=== PATIENT | female | born 1960 | race Caucasian/White ===

== ENCOUNTER → 2017-01-20 | Outpatient (CLI) | payer OTHER ==
[~2017-01-20] MED LIST: ALENDRONATE SOD70 MG PO; ASPIRIN EC81 MG PO; COLACE 100MG C100 MG PO; LEVOCETIRIZINE D5 MG PO; LIPITOR TAB 2020 MG PO; LORTAB 7.5-3251 EACH PO; METHOCARBAMOL750 MG PO; METOPROLOL TART25 MG PO; MONTELUKAST SOD10 MG PO; NEURONTIN 300300 MG PO; PLAVIX 75 MG TA75 MG PO; VENTOLIN HFA8 GM INH; VITAMIN D400 UNIT PO
== END ==
LOC: MAMO 07:55
DX: Z12.31 Encounter for screening mammogram for malignant neoplasm of breast (principal); Z78.0 Asymptomatic menopausal state
CPT/HCPCS: G0202

== ENCOUNTER → 2020-09-25 | Outpatient (CLI) | payer MEDICARE ==
[~2020-09-25] MED LIST changes: +ADVAIR 100-501 EACH INH; +CILOSTAZOL50 MG PO; +CRESTOR 10 MG T10 MG PO; +FLEXERIL 10 MG10 MG PO; +FLONASE 0.05% N16 GM; +MOBIC7.5 MG PO; +MUCINEX600 MG PO; +NORCO 7.5-3251 EACH PO; +PLAVIX75 MG PO; +PROTONIX40 MG PO; +VITAMIN D250000 UNIT PO; +[UNRECOGNIZED DRUG - OTHER]; +[UNRECOGNIZED DRUG - OTHER] PO
[2020-09-25 10:48] LABS: HEMOGLOBIN 12.8 gm/dl (12.3-15.3); RED BLOOD COUNT 4.54 M/UL (4.00-5.10); WHITE BLOOD COUNT 9.2 K/UL (4.5-11.0)
[2020-09-25 11:12] LABS: BUN/CREATININE RATIO 13 (0-10)
== END ==
LOC: MAMO 06-22 13:30
PROVIDERS: Nurse Practitioner Family
DX: Z12.31 Encounter for screening mammogram for malignant neoplasm of breast (principal); R93.7 Abnormal findings on diagnostic imaging of other parts of musculoskeletal system; M54.5 Low back pain; J30.9 Allergic rhinitis, unspecified; K21.9 Gastro-esophageal reflux disease without esophagitis; E78.5 Hyperlipidemia, unspecified; I10 Essential (primary) hypertension; K59.04 Chronic idiopathic constipation; E55.9 Vitamin D deficiency, unspecified; R20.2 Paresthesia of skin
CPT/HCPCS: 36415; 77063; 77067; 80053; 80061; 82607; 84439; 84443; 85025

== ENCOUNTER → 2020-10-23 | Outpatient (CLI) | payer MEDICARE | LOC: KOH-I 11:19 | DX: R31.9 Hematuria, unspecified (principal); M54.9 Dorsalgia, unspecified | CPT/HCPCS: 72100; 74018 ==

== ENCOUNTER → 2021-02-12 | Outpatient (CLI) | payer MEDICARE | LOC: EXRD 09:39 | DX: M54.16 Radiculopathy, lumbar region (principal); M47.816 Spondylosis without myelopathy or radiculopathy, lumbar region | CPT/HCPCS: 72100 ==

== ENCOUNTER → 2021-02-25 | Outpatient (CLI) | payer MEDICARE ==
[2021-02-27 08:13] LABS: RHEUMATOID ARTHRITIS FACTOR <10.0 IU/mL (0.0-13.9)
== END ==
LOC: LAB 17:02
PROVIDERS: Nurse Practitioner Family
DX: M25.50 Pain in unspecified joint (principal); E78.49 Other hyperlipidemia
CPT/HCPCS: 36415; 84550; 85652; 86038; 86060; 86140; 86141; 86431

== ENCOUNTER → 2021-03-19 | Outpatient (CLI) | payer MEDICARE, SELFPAY | LOC: EMI 13:00 | DX: M47.26 Other spondylosis with radiculopathy, lumbar region (principal) | CPT/HCPCS: 72148 ==

== ENCOUNTER → 2021-07-04 | Outpatient (CLI) | payer MEDICARE ==
[2021-07-04 09:57] LABS: HEMOGLOBIN 13.6 gm/dl (12.3-15.3); RED BLOOD COUNT 4.62 M/UL (4.00-5.10); WHITE BLOOD COUNT 9.7 K/UL (4.5-11.0)
[2021-07-04 10:29] LABS: BUN/CREATININE RATIO 20 (0-10)
[2021-07-06 11:13] LABS: CREATININE, URINE 269.6 mg/dL (Not Estab.)
== END ==
LOC: LAB 09:14
PROVIDERS: Nurse Practitioner Family
DX: I10 Essential (primary) hypertension (principal); J30.9 Allergic rhinitis, unspecified; I70.213 Atherosclerosis of native arteries of extremities with intermittent claudication, bilateral legs; G56.00 Carpal tunnel syndrome, unspecified upper limb; G89.4 Chronic pain syndrome; J44.9 Chronic obstructive pulmonary disease, unspecified; E78.5 Hyperlipidemia, unspecified; K59.04 Chronic idiopathic constipation; R29.2 Abnormal reflex; R20.2 Paresthesia of skin; E55.9 Vitamin D deficiency, unspecified
CPT/HCPCS: 80053; 80061; 82043; 82570; 82607; 84439; 84443; 85025

== ENCOUNTER → 2021-09-02 | Outpatient (CLI) | payer MEDICARE | LOC: KOH-I 13:29 | DX: F17.210 Nicotine dependence, cigarettes, uncomplicated (principal); R91.8 Other nonspecific abnormal finding of lung field | CPT/HCPCS: 71271 ==

== ENCOUNTER → 2021-11-05 | Outpatient (CLI) | payer MEDICARE | LOC: MAMO 10-18 11:30 | DX: Z12.31 Encounter for screening mammogram for malignant neoplasm of breast (principal) | CPT/HCPCS: 77063; 77067 ==

== ENCOUNTER → 2022-04-15 | Outpatient (CLI) | payer MEDICARE | LOC: KOH-I 10:06 | DX: R31.9 Hematuria, unspecified (principal) | CPT/HCPCS: 74018 ==

== ENCOUNTER → 2022-05-13 | Outpatient (CLI) | payer MEDICARE, OTHER | LOC: EXRD 09:07 | DX: R09.89 Other specified symptoms and signs involving the circulatory and respiratory systems (principal); I73.9 Peripheral vascular disease, unspecified | CPT/HCPCS: 93880 ==